=== PATIENT | female | born 1985 | race American Indian/Alaskan Native ===

== ENCOUNTER 2018-06-20 15:23 | Emergency (ER) | payer OTHER ==
--- NOTE | 2018-06-20 15:44 | Emergency Department Report ---
Blank Doc - Documentation Documentation: This is a 32-year-old female that presents with vaginal discharge and discharge. This initial assessment/diagnostic orders/clinical plan/treatment(s) is/are subject to change based on patient's health status, clinical progression and re- assessment by fellow clinical providers in the ED. Further treatment and workup at subsequent clinical providers discretion. Patient/guardians urged not to elope from the ED as their condition may be serious if not clinically assessed and managed. Initial orders include: 1- Patient sent to [facility] for further evaluation and treatment 2- UA 3- wet prep
[2018-06-20 15:45] VITALS: BP 121/76
[2018-06-20 17:38] LABS: Bacteria,Urine 2+ /HPF (Negative); Bilirubin,Urine NEG (Negative); Blood,Urine NEG (Negative); Color,Urine Yellow (Yellow); Mucus,Urine FEW /HPF; Protein,Urine <15 mg/dL mg/dL (Negative); Urobilinogen,Urine < 2.0 mg/dL (<2.0)
[2018-06-20 17:43] LABS: HCG Qualitative,Urine Negative (Negative)
[2018-06-20] MEDS ORDERED: ROCEPHIN IM ONE (18:34)
[2018-06-20] MEDS ORDERED: ZITHROMAX PO ONE (18:38)
--- NOTE | 2018-06-20 18:39 | Emergency Department Report ---
ED Female HPI - General Chief complaint: Urogenital-Female Stated complaint: VAGINAL DISCOMFORT Time Seen by Provider: 06/20/18 15:31 Source: patient Mode of arrival: Ambulatory Limitations: No Limitations - History of Present Illness Initial comments: Pt is a 32 yo female who presents to the ED with c/o vaginal discharge that began a couple of days ago. The patient states that is a yellow/green color. The patient states she has suprapubic cramping but no obie pain. The patient is sexually active and does not use protection. The patient denies any urinary sx or fever. She states she had chlamydia about 3-4 years ago and was treated at that time. Complaint: vaginal discharge Onset/Timin -: days(s) Radiation: suprapubic Severity scale (0 -10): 1 Quality: cramping Consistency: intermittent Worsens with: none Are you Now?: No Associated Symptoms: vaginal discharge. denies: vaginal bleeding, abdominal pain, nausea/vomiting, fever/chills, loss of appetite, dysuria, hematuria - Related Data Sexually active: Yes Allergies Allergy/AdvReac Type Severity Reaction Status Date / Time codeine Allergy Unknown Verified 06/20/18 15:24 ED Review of Systems ROS: Stated complaint: VAGINAL DISCOMFORT Other details as noted in HPI Comment: All other systems reviewed and negative ED Past Medical Hx - Past Medical History Previous Medical History?: No - Surgical History Past Surgical History?: Yes Additional Surgical History: c section - Social History Smoking Status: Never Smoker Substance Use Type: Alcohol ED Physical Exam - General Limitations: No Limitations General appearance: alert, in no apparent distress - Head Head exam: Present: atraumatic, normocephalic - Eye Eye exam: Present: normal appearance - ENT ENT exam: Present: mucous membranes moist - GI/Abdominal GI/Abdominal exam: Present: soft, normal bowel sounds. Absent: distended, tenderness, guarding, rebound, rigid - Speculum exam: Present: cervical discharge (normal appearance of cervical with scant amount of yellow/white discharge, foul odor, RN present for pelvic examination ) Bi-manual exam: Present: normal bi-manual exam. Absent: cervical motion tendernes, adnexal tenderness, adnexal mass, uterine tenderness - Neurological Exam Neurological exam: Present: alert, oriented X3 - Psychiatric Psychiatric exam: Present: normal affect, normal mood - Skin Skin exam: Present: warm, dry, intact ED Course Vital Signs 06/20/18 15:43 Temperature 98.6 F Pulse Rate 87 Respiratory 16 Rate Blood Pressure 121/76 [Left] O2 Sat by Pulse 99 Oximetry ED Medical Decision Making - Medical Decision Making Pt presents with c/o yellow/white vaginal discharge for a couple of days. She is sexually active and does not use protection. hx of chlamydia in the past. No abd pain, no fever, no CMT. Scant amount of yellow/white discharge present, normal cervix. Send wet prep and G/C. Will treat pt for G/C will in the ED. Pt does not want to wait for wet prep results. Pt wanted to be discharged immediately after she received treatment for G/C. Advised pt that she would need to sign out AMA due to not having results of wet prep and would not know if there was anything else pt needed to be treated for. Pt verbalized understanding and signed out AMA. RN was present during conversation. Advised pt to follow up with the health department for further STD treatment. Discussed with pt to not engage in intercourse and that her partner needed to be tested as well. - Differential Diagnosis G/C, BV, yeast infection, trichomonas, other STIs Critical care attestation.: If time is entered above; I have spent that time in minutes in the direct care of this critically ill patient, excluding procedure time. ED Disposition Clinical Impression: Vaginal discharge Disposition: LEFT AGAINST MED ADVICE Is pt being admited?: No Does the pt Need Aspirin: No Condition: Stable Instructions: Sexually Transmitted Diseases (ED) Additional Instructions: Follow up with the health department for further STD testing and treatment. Referrals: DANIELLE BORJAS MD [Primary Care Provider] - 3-5 Days Forms: AMA Form Time of Disposition: 19:00 Print Language: [place]
[2018-06-20] MEDS ORDERED: XYLOCAINE 2% INFILTRATI ONE (18:46)
[2018-06-20] MEDS ORDERED: XYLOCAINE 1% MPF 5 mL ONE (18:47)
== END 2018-06-20 18:40 | disposition left against medical advice (07) ==
LOC: ED 15:23
DX: N89.8 Other specified noninflammatory disorders of vagina (principal); R10.30 Lower abdominal pain, unspecified; Z88.5 Allergy status to narcotic agent
CPT/HCPCS: 81001; 81025; 87210; 87591; 96372; 99284; J0696